=== PATIENT | male | born 1970 | race Caucasian/White ===

== ENCOUNTER 2024-07-11 22:01 | Emergency (ER) | payer MEDICARE, OTHER ==
[~2024-07-11] VITALS: Ht 190.5 cm; Wt 87.3 kg
[2024-07-11 22:36] VITALS: BP 123/88; PULSE 85; RESP 16; O2SAT 94
[2024-07-12] MEDS ORDERED: [UNRECOGNIZED DRUG - CODE] PO (01:17)
== END 2024-07-12 02:08 | disposition home or self-care (01) ==
LOC: ER 22:01
DX: R56.9 Unspecified convulsions (principal); J45.909 Unspecified asthma, uncomplicated; F32.9 Major depressive disorder, single episode, unspecified; Z76.0 Encounter for issue of repeat prescription; Z79.899 Other long term (current) drug therapy; Z88.8 Allergy status to other drugs, medicaments and biological substances